=== PATIENT | female | born 1970 | race Caucasian/White ===

== ENCOUNTER 2018-07-22 18:31 | Emergency (ER) | payer MEDICAID, OTHER ==
[~2018-07-22] VITALS: Ht 175.3 cm; Wt 70.3 kg
[~2018-07-22 18:31] MED LIST: ONDA4TAB59 PO
[2018-07-22 19:11] LABS: BASOPHILS % (AUTO) 0.2 % (0-1); EOSINOPHILS # (AUTO) 0.1 X10'3 (0-0.9); EOSINOPHILS % (AUTO) 0.5 % (0-6); HEMATOCRIT 43.7 % (35.0-45.0); HEMOGLOBIN 14.5 g/dl (12.0-16.0); LYMPHOCYTES % (AUTO) 16.9 % (21-51); MEAN CORPUSCULAR HGB CONC 33.2 % (33.0-36.5); MEAN CORPUSCULAR VOLUME 87.5 FL (78-98); MEAN PLATELET VOLUME 9.1 FL (7.4-10.4); MONOCYTES # (AUTO) 0.7 X10'3 (0-0.9); MONOCYTES % (AUTO) 5.7 % (2-12); NEUTROPHILS # (AUTO) 8.9 X10'3 (1.8-7.7); NEUTROPHILS % (AUTO) 76.7 % (42-75); PLATELET COUNT 308 X10'3 (140-440); RED CELL DISTRIBUTION WIDTH 13.6 % (11.5-14.5); WHITE BLOOD COUNT 11.6 X10'3 (4.5-11.0)
[2018-07-22 19:12] LABS: INR 1.1 INR; PROTHROMBIN TIME 10.8 SECONDS (9.0-12.0)
[2018-07-22 19:16] LABS: ALANINE AMINOTRANSFERASE 21 U/L (12-78); ALBUMIN 4.3 G/DL (3.4-5.0); ALBUMIN/GLOBULIN RATIO 1.3 (1.1-1.5); ALKALINE PHOSPHATASE 85 IU/L (46-116); ANION GAP 9 (8-16); ASPARTATE AMINO TRANSFERASE 21 U/L (10-37); BILIRUBIN,TOTAL 0.3 MG/DL (0.1-1.0); BLOOD UREA NITROGEN 14 MG/DL (7-18); BUN/CREATININE RATIO 11.4 (6.6-38.0); CALCIUM 8.6 MG/DL (8.5-10.1); CHLORIDE 101 MMOL/L (99-107); CREATININE 1.23 MG/DL (0.40-0.90); GLUCOSE 110 MG/DL (70-104); POTASSIUM 4.1 MMOL/L (3.5-5.1); SODIUM 136 MMOL/L (135-145); TOTAL CARBON DIOXIDE 25.7 MMOL/L (24-32); TOTAL PROTEIN 7.5 G/DL (6.4-8.2); eGFR 47 ML/MIN
[2018-07-22 19:24] LABS: URINE HCG NEGATIVE (NEG)
[2018-07-22 19:26] LABS: CLARITY,URINE CLEAR (Clear); COLOR,URINE YELLOW (Yellow); GLUCOSE, URINE NEGATIVE (Neg); KETONES,URINE NEGATIVE (Neg); LEUKOCYTE ESTERASE ,URINE NEGATIVE (Neg); NITRITES, URINE NEGATIVE (Neg); OCCULT BLOOD,URINE TRACE-INTACT (Neg); PROTEIN,URINE NEGATIVE (Neg); UROBILINOGEN,URINE 0.2 E.U/dL (0.2-1.0)
[2018-07-22 19:28] LABS: UA COLLECTION TYPE CLN CATCH MIDSTREAM
[2018-07-22 19:56] LABS: BACTERIA,URINE NONE SEEN /HPF (Neg); MUCUS STRANDS NONE SEEN /LPF (Neg); SQUAMOUS EPITHELIAL CELL,UR FEW /LPF (FEW); WBC,URINE NONE SEEN /HPF (0-4)
[2018-07-22 22:02] VITALS: BP 112/60
[2018-07-22] MEDS ORDERED: ACET-3068 PO (22:40)
== END 2018-07-22 22:52 | disposition home or self-care (01) ==
LOC: ER 18:34
DX: R10.2 Pelvic and perineal pain (principal); R10.32 Left lower quadrant pain; E03.8 Other specified hypothyroidism; F17.200 Nicotine dependence, unspecified, uncomplicated; F12.90 Cannabis use, unspecified, uncomplicated; Z90.49 Acquired absence of other specified parts of digestive tract; Z90.710 Acquired absence of both cervix and uterus; Z88.1 Allergy status to other antibiotic agents
CPT/HCPCS: 36415; 76830; 76856; 80053; 81001; 81025; 85025; 85610; 99284

== ENCOUNTER 2019-05-21 20:15 | Emergency (ER) | payer MEDICAID, OTHER ==
[~2019-05-21] VITALS: Ht 175.3 cm; Wt 80.0 kg
[2019-05-21] MEDS ORDERED: LORazepam 1 MG tablet PO ONE (20:55)
[2019-05-21 20:58] LABS: BASOPHILS # (AUTO) 0.1 X10'3 (0-0.2); BASOPHILS % (AUTO) 0.3 % (0-1); EOSINOPHILS % (AUTO) 0.1 % (0-6); HEMATOCRIT 43.1 % (35.0-45.0); HEMOGLOBIN 14.7 g/dl (12.0-16.0); LYMPHOCYTES # (AUTO) 1.5 X10'3 (1.1-4.8); MEAN CORPUSCULAR HEMOGLOBIN 29.3 PG (27.0-31.0); MEAN CORPUSCULAR HGB CONC 34.2 g/dL (33.0-36.5); MEAN CORPUSCULAR VOLUME 85.8 FL (78-98); MEAN PLATELET VOLUME 8.8 FL (7.4-10.4); MONOCYTES # (AUTO) 0.7 X10'3 (0-0.9); MONOCYTES % (AUTO) 4.8 % (2-12); NEUTROPHILS # (AUTO) 12.9 X10'3 (1.8-7.7); NEUTROPHILS % (AUTO) 84.8 % (42-75); PLATELET COUNT 371 X10'3 (140-440); RED BLOOD COUNT 5.02 X10'6 (4.20-5.60); RED CELL DISTRIBUTION WIDTH 13.6 % (11.5-14.5); WHITE BLOOD COUNT 15.2 X10'3 (4.5-11.0)
[2019-05-21 21:04] LABS: ALANINE AMINOTRANSFERASE 43 U/L (12-78); ALBUMIN 4.1 G/DL (3.4-5.0); ALBUMIN/GLOBULIN RATIO 1.1 (1.1-1.5); ALKALINE PHOSPHATASE 88 IU/L (46-116); ANION GAP 13 (8-16); ASPARTATE AMINO TRANSFERASE 31 U/L (10-37); BILIRUBIN,TOTAL 0.5 MG/DL (0.1-1.0); BLOOD UREA NITROGEN 14 MG/DL (7-18); BUN/CREATININE RATIO 11.5 (6.6-38.0); CHLORIDE 105 MMOL/L (99-107); CREATININE 1.22 MG/DL (0.40-0.90); GLUCOSE 180 MG/DL (70-104); POTASSIUM 3.8 MMOL/L (3.5-5.1); SODIUM 142 MMOL/L (135-145); TOTAL CARBON DIOXIDE 23.6 MMOL/L (24-32); eGFR 47 ML/MIN
[2019-05-21 21:13] LABS: ETHANOL < 0.010 GM/DL (0.0-0.010)
--- NOTE | 2019-05-21 21:13 | NUR ---
Patient came in [facility]. She states she smoked meth on the street tonight, she is unsure if it is really meth. Patient exhibits acute anxiety. She complains of S/I without a plan. Patient states she recently lost her job. Patient denies hallucinations or H/I. She exhibits rapid speech, loud tones. Intermittent eye contact. Urine and blood samples obtained and sent for lab analysis. Friends at bedside, patient has a good support system.
[2019-05-21 21:23] LABS: CLARITY,URINE SLIGHTLY CLOUDY (Clear); COLOR,URINE YELLOW (Yellow); GLUCOSE, URINE NEGATIVE (Neg); KETONES,URINE NEGATIVE (Neg); LEUKOCYTE ESTERASE ,URINE NEGATIVE (Neg); NITRITES, URINE NEGATIVE (Neg); OCCULT BLOOD,URINE SMALL (Neg); PH,URINE 5.5 (4.8-8.0); PROTEIN,URINE TRACE mg/dl (Neg); URINE HCG NEGATIVE (NEG); UROBILINOGEN,URINE 0.2 E.U/dL (0.2-1.0)
[2019-05-21 21:24] LABS: UA COLLECTION TYPE CLN CATCH MIDSTREAM
[2019-05-21 21:37] LABS: URINE AMPHETAMINE SCREEN POSITIVE (Neg); URINE BARBITUATE SCREEN NEGATIVE (Neg); URINE BENZODIAZEPINES SCREEN NEGATIVE (Neg); URINE CANNABINOID SCREEN POSITIVE (Neg); URINE COCAINE SCREEN NEGATIVE (Neg); URINE METHADONE SCREEN NEGATIVE (Neg); URINE OPIATE SCREEN NEGATIVE (Neg); URINE PHENCYCLIDINE SCREEN NEGATIVE (Neg)
[2019-05-21 21:43] LABS: BACTERIA,URINE 2+ /HPF (Neg); RBC,URINE 0-2 /HPF (0-2); SQUAMOUS EPITHELIAL CELL,UR MODERATE /LPF (FEW); WBC,URINE 0-4 /HPF (0-4)
[2019-05-21 21:44] LABS: HYALINE CASTS 0-3 /LPF (NEGATIVE); MUCUS STRANDS FEW /LPF (Neg)
[2019-05-21] MEDS ORDERED: diphenhydrAMINE 25mg capsule PO ONE (21:45)
[2019-05-21] MEDS ORDERED: SERT25TA PO (23:30)
[2019-05-22] MEDS ORDERED: temazepam 15mg capsule PO ONE ×3 (00:05→21:00)
--- NOTE | 2019-05-22 00:05 | NUR ---
Patient complains of not being able to sleep. Anxiety has decreased. Headache is still present for nearly a week with radiation down right arm. Tylenol and Restoril will be given.
[2019-05-22] MEDS: acetaminophen 325mg tablet PO PRN ×2 (00:27→08:48)
--- NOTE | 2019-05-22 00:53 | NUR ---
Patient is awake and laying on her right side. She colors. Patient states she is tired but can't sleep. If not asleep in a short while the Restoril will be repeated.
--- NOTE | 2019-05-22 01:59 | NUR ---
PT GIVEN 2ND DOSE OF RESTORIL 25 MIN AGO. SHE IS CALM AND LYING ON HER LEFT SIDE WITH HER HEAD ON A PILLOW AT THE FOOT OF THE BED AND A BLANKET COVERING TO HER SHOULDERS. RR 14 AND UNLABORED. PT INTERMITTENTLY MUMBLING SOMETHING QUIETLY. SITTER WITHIN VIEW OF PT AAT.
[2019-05-22] MEDS ORDERED: haloperidol lactate 5mg/ml inj IM ONE (03:00)
--- NOTE | 2019-05-22 03:25 | NUR ---
Patient still not sleeping. She is up and pacing. Patient states her mind is racing. Dr. Mccormack consulted. Haldol 10 mg is given IM. Patient concented to medication administration. A baseline EKG is also being done. Patient is cooperative, she states "I shouldn't have used meth."
--- NOTE | 2019-05-22 03:35 | NUR ---
12 lead EKG is complete. Sinus Bradycardia without ectopy. Rate of 51. No acute changes noted. EKG is sent to ER MD for doctor review.
--- NOTE | 2019-05-22 04:28 | NUR ---
This patient has fallen asleep. She is sleeping in bed on her right side. In view from the nursing station. Q15 minute rounding is also being done for patient safety.
--- NOTE | 2019-05-22 05:25 | NUR ---
Patient is awake again. She ambulates to bathroom then returns to bed.
[2019-05-22 05:58] VITALS: BP 90/44
--- NOTE | 2019-05-22 06:39 | NUR ---
pt resting quietly in bed, no needs at this time.
[2019-05-22] MEDS ORDERED: sertraline 50mg tablet PO SCH (08:00)
--- NOTE | 2019-05-22 08:00 | NUR ---
pt resting in bed quietly.
--- NOTE | 2019-05-22 09:37 | NUR ---
pts friend at bedside.
--- NOTE | 2019-05-22 10:20 | NUR ---
[facility] meeting with pt at bedside.
[2019-05-22] MEDS ORDERED: HYDR-3686 PO (11:03)
== END 2019-05-22 11:31 | disposition home or self-care (01) ==
LOC: ER 20:15
DX: F32.2 Major depressive disorder, single episode, severe without psychotic features (principal); R45.851 Suicidal ideations; E03.9 Hypothyroidism, unspecified; F12.90 Cannabis use, unspecified, uncomplicated; F15.90 Other stimulant use, unspecified, uncomplicated; Z56.0 Unemployment, unspecified; Z90.49 Acquired absence of other specified parts of digestive tract; Z90.710 Acquired absence of both cervix and uterus; Z88.1 Allergy status to other antibiotic agents; Z79.899 Other long term (current) drug therapy
CPT/HCPCS: 36415; 80053; 80305; 80320; 81001; 81025; 84443; 85025; 93005; 96372; 99284; J1630; Q0163